=== PATIENT | female | born 1955 | race African-American/Black ===

== ENCOUNTER 2023-06-23 09:01 | Emergency (ER) | payer OTHER, MEDICAID ==
[~2023-06-23] VITALS: Ht 172.7 cm; Wt 75.0 kg
[2023-06-23 09:06] VITALS: O2SAT 100
[2023-06-23] MEDS ORDERED: KETOROLAC 60MG/2ML VIAL IM STA (09:12)
[2023-06-23 09:55] LABS: HEMATOCRIT. 43.5 % (36.0-48.0); HEMOGLOBIN. 14.4 g/dL (12.0-16.0); MEAN CORPUSCULAR HGB CONC 33.1 g/dL (31.0-37.0); MEAN CORPUSCULAR VOLUME 96.5 fL (81.0-99.0); MEAN PLATELET VOLUME 8.6 fl (7.4-10.4); PLATELET 193 x1000/uL (130-400); RED BLOOD CELL COUNT 4.51 mill/uL (4.2-5.4); RED CELL DISTRIBUTION WIDTH 13.2 % (11.6-14.6); WHITE BLOOD COUNT 20.5 x1000/uL (4.5-11.0)
[2023-06-23 10:06] LABS: ALANINE AMINOTRANSFERASE 917 IU/L (10-49); ALBUMIN 4.1 g/dL (3.2-4.8); ASPARTATE AMINOTRANSFERASE 875 IU/L (<34); BILIRUBIN TOTAL 8.6 mg/dL (0.1-1.0); CALCIUM 9.1 mg/dL (8.7-10.4); CARBON DIOXIDE 16 mEq/L (21-32); CHLORIDE 104 mEq/L (98-107); CREATININE 1.1 mg/dL (0.6-1.0); GLUCOSE 187 mg/dL (70-105); POTASSIUM 3.6 mEq/L (3.5-5.1); PROTEIN TOTAL 7.5 g/dL (6.0-8.3); SODIUM 138 mEq/L (136-145); TROPONIN I HIGH SENSITIVITY 9 ng/L (3.0-34); UREA NITROGEN BLOOD 19 mg/dL (9-23)
[2023-06-23 10:11] LABS: DIFFERENTIAL COMMENT 1
[2023-06-23 11:05] LABS: PLATELET ESTIMATE NORMAL
[2023-06-23] MEDS ORDERED: SODIUM CHLORIDE 0.9% 1,000 ML IV ONE ×2 (12:45→17:30)
[2023-06-23] MEDS ORDERED: MORPHINE SULFATE 4 MG/ML CPJ (NOT FOR IM USE) IV ONE (13:15)
[2023-06-23] MEDS ORDERED: PIPERACILLIN/TAZO 3.375G/50ML 50 ML IV SCH (14:00)
[2023-06-23] MEDS ORDERED: LACTATED RINGERS 1,000 ML IV SCH ×2 (19:45→20:45)
[2023-06-23 20:43] VITALS: PULSE 79; TEMP 98.2
[2023-06-23] MEDS ORDERED: LACTATED RINGERS 1,000 ML IV STA ×2 (20:49→21:49)
[2023-06-23 20:59] VITALS: BP 96/58; RESP 16
[2023-06-23] MEDS ORDERED: FENTANYL CITRATE/PF 50MCG/ML 2ML VIAL IV ONE (21:00)
== END 2023-06-24 00:56 | disposition short-term general hospital (02) ==
LOC: ER 09:33 → CANBEDREQ 12:43 → ER 06-24 00:56
DX: K81.0 Acute cholecystitis (principal); F41.9 Anxiety disorder, unspecified; E78.00 Pure hypercholesterolemia, unspecified; Z20.822 Contact with and (suspected) exposure to COVID-19
CPT/HCPCS: 99285; 96365; 76705; 71045; 96375; 96361; 87426; 80053; 83605; 83690; 85025; 84484; 36415; 93005; 96372; J3010; J1885; J2543; J2270; J7120; J7030